=== PATIENT | female | born 1995 | race Caucasian/White ===

== ENCOUNTER 2022-01-14 10:22 | Emergency (ER) | payer OTHER ==
[~2022-01-14] VITALS: Ht 157.5 cm; Wt 72.1 kg
[2022-01-14 10:27] VITALS: BP 135/74
[2022-01-14 10:58] LABS: BASOPHILS % (AUTO) 0.3 % (0.0-2.0); EOSINOPHILS # (AUTO) 0.4 K/uL (0-0.4); EOSINOPHILS % (AUTO) 4.3 % (0.0-4.0); HEMATOCRIT 35.6 % (36-48); HEMOGLOBIN 11.9 g/dL (12.0-16.0); LYMPHOCYTES # (AUTO) 1.7 K/uL (2.5-16.5); LYMPHOCYTES % (AUTO) 20.6 % (20.5-51.1); MEAN CORPUSCULAR HEMOGLOBIN 29 pg (27-31); MEAN CORPUSCULAR HGB CONC 34 g/dL (33-37); MONOCYTES # (AUTO) 0.8 K/uL (0.8-1.0); MONOCYTES % (AUTO) 9.5 % (1.7-9.3); NEUTROPHILS # (AUTO) 5.5 K/uL (1.8-7.7); NEUTROPHILS % (AUTO) 65.3 % (42.2-75.2); PLATELET COUNT (AUTO) 330 K/uL (140-450); RED BLOOD CELL COUNT(AUTO) 4.14 MIL/uL (4.20-5.40); RED CELL DISTRIBUTION WIDTH 13.5 % (11.6-13.7); WHITE BLOOD COUNT (AUTO) 8.5 K/uL (4.8-10.8)
[2022-01-14 11:21] LABS: ALBUMIN 3.5 g/dL (3.4-5.0); ANION GAP 13.3 (8-16); CARBON DIOXIDE 24.3 mmol/L (21-32); CREATININE 0.7 mg/dL (0.6-1.3); POTASSIUM 3.6 mmol/L (3.5-5.1); TOTAL BILIRUBIN 0.3 mg/dL (0.0-1.0)
[2022-01-14 12:00] VITALS: BP 101/47
[2022-01-14] MEDS ORDERED: HYD1C TP (13:04)
== END 2022-01-14 13:17 | disposition home or self-care (01) ==
LOC: MED 10:22
DX: O26.891 Other specified pregnancy related conditions, first trimester (principal); R21 Rash and other nonspecific skin eruption; Z3A.01 Less than 8 weeks gestation of pregnancy
CPT/HCPCS: 36415; 80053; 81002; 81025; 84702; 85025; 99283

== ENCOUNTER 2022-04-15 15:05 | Observation (INO) | payer OTHER ==
[~2022-04-15] VITALS: Ht 157.5 cm; Wt 80.7 kg
[~2022-04-15 15:05] MED LIST: HYD1C TP
[2022-04-15] MEDS ORDERED: PRETAB PO (15:44)
[2022-04-15 15:49] VITALS: BP 118/56
[2022-04-15 16:10] LABS: BASOPHILS % (AUTO) 0.2 % (0.0-2.0); EOSINOPHILS # (AUTO) 0.2 K/uL (0-0.4); EOSINOPHILS % (AUTO) 1.3 % (0.0-4.0); HEMATOCRIT 31.8 % (36-48); HEMOGLOBIN 10.5 g/dL (12.0-16.0); LYMPHOCYTES # (AUTO) 2.1 K/uL (2.5-16.5); LYMPHOCYTES % (AUTO) 18.6 % (20.5-51.1); MEAN CORPUSCULAR HEMOGLOBIN 27 pg (27-31); MEAN CORPUSCULAR HGB CONC 33 g/dL (33-37); MEAN CORPUSCULAR VOLUME 82.4 fL (80-94); MONOCYTES # (AUTO) 0.7 K/uL (0.8-1.0); MONOCYTES % (AUTO) 5.8 % (1.7-9.3); NEUTROPHILS # (AUTO) 8.5 K/uL (1.8-7.7); NEUTROPHILS % (AUTO) 74.1 % (42.2-75.2); PLATELET COUNT (AUTO) 330 K/uL (140-450); RED BLOOD CELL COUNT(AUTO) 3.86 MIL/uL (4.20-5.40); RED CELL DISTRIBUTION WIDTH 13.3 % (11.6-13.7); WHITE BLOOD COUNT (AUTO) 11.5 K/uL (4.8-10.8)
== END 2022-04-15 17:32 | disposition home or self-care (01) ==
LOC: MLD 15:05
PROVIDERS: ADMIT Obstetrics & Gynecology; ATTEND Obstetrics & Gynecology
DX: O26.892 Other specified pregnancy related conditions, second trimester (principal); R10.9 Unspecified abdominal pain; R06.02 Shortness of breath; R42 Dizziness and giddiness; H53.8 Other visual disturbances; Z3A.20 20 weeks gestation of pregnancy
CPT/HCPCS: 36415; 59025; 76805; 81000; 85025; G0378; Q0092

== ENCOUNTER 2022-12-11 08:49 | Emergency (ER) | payer OTHER ==
[~2022-12-11] VITALS: Ht 165.1 cm; Wt 81.6 kg
[~2022-12-11 08:49] MED LIST changes: -HYD1C TP; +PRETAB PO
[2022-12-11 08:53] VITALS: BP 137/61
--- NOTE | 2022-12-11 08:57 | NUR ---
PT AMBULATED TO BED 2 WITH STEADY GAIT
--- NOTE | 2022-12-11 10:05 | NUR ---
Dr. Leavitt bedside
[2022-12-11] MEDS ORDERED: DICYCLOMINE HCL LIQUID 20 MG, ALUMINUM HYD/MAG/SIMETHICONE 30 ML, LIDOCAINE VISCOUS 2% ... PO ONE ×3 (10:15)
[2022-12-11] MEDS ORDERED: DICYCLOMINE HCL LIQUID 10 MG/5 ML UDC ONE (10:21)
[2022-12-11] MEDS ORDERED: ALUMINUM HYD/MAG/SIMETHICONE 30 ML UDC ONE (10:21)
[2022-12-11 10:33] LABS: BASOPHILS % (AUTO) 0.2 % (0.0-2.0); EOSINOPHILS # (AUTO) 0.3 K/uL (0-0.4); EOSINOPHILS % (AUTO) 2.2 % (0.0-4.0); HEMATOCRIT 39.6 % (36-48); LYMPHOCYTES # (AUTO) 1.9 K/uL (2.5-16.5); LYMPHOCYTES % (AUTO) 16.9 % (20.5-51.1); MEAN CORPUSCULAR HEMOGLOBIN 26 pg (27-31); MEAN CORPUSCULAR HGB CONC 33 g/dL (33-37); MEAN CORPUSCULAR VOLUME 79.2 fL (80-94); MONOCYTES # (AUTO) 0.6 K/uL (0.8-1.0); MONOCYTES % (AUTO) 5.5 % (1.7-9.3); NEUTROPHILS # (AUTO) 8.6 K/uL (1.8-7.7); NEUTROPHILS % (AUTO) 75.2 % (42.2-75.2); PLATELET COUNT (AUTO) 353 K/uL (140-450); RED BLOOD CELL COUNT(AUTO) 5.01 MIL/uL (4.20-5.40); RED CELL DISTRIBUTION WIDTH 14.8 % (11.6-13.7); WHITE BLOOD COUNT (AUTO) 11.4 K/uL (4.8-10.8)
[2022-12-11 10:46] LABS: ALBUMIN 4.2 g/dL (3.4-5.0); ANION GAP 12.7 (8-16); CARBON DIOXIDE 26.7 mmol/L (21-32); CREATININE 0.8 mg/dL (0.6-1.3); POTASSIUM 4.4 mmol/L (3.5-5.1); TOTAL BILIRUBIN 0.5 mg/dL (0.0-1.0)
[2022-12-11 11:07] LABS: APPEARANCE,URINE SL CLOUDY (CLEAR); BILIRUBIN,URINE NEGATIVE (NEGATIVE); BLOOD, URINE TRACE-I (NEGATIVE); COLOR,URINE YELLOW (YELLOW); LEUKOCYTE ESTERASE ,URINE NEGATIVE (NEGATIVE); NITRITE, URINE NEGATIVE (NEGATIVE); PH,URINE 5.5 (5.0-9.0); UGLUCOSE NEGATIVE (NEGATIVE)
--- NOTE | 2022-12-11 11:49 | NUR ---
Female [employer] accompanied female patient for Rectal Exam.
[2022-12-11] MEDS ORDERED: ONDANSETRON 4 MG ODT PO ONE (11:50)
[2022-12-11] MEDS ORDERED: KETOROLAC 30 MG/ML VIAL IM ONE (11:50)
[2022-12-11 11:51] LABS: RBC,URINE 0-5 /HPF (0-5); WBC,URINE 0-5 /HPF (0-5)
--- NOTE | 2022-12-11 12:30 | NUR ---
Pt aware she needs to travel via ambulance to [place] for CT. Pt requesting to stay in regular clothes.
--- NOTE | 2022-12-11 14:03 | NUR ---
Report given to EMS. Pt to be be transported to [place] for abd CT and returen when completed.
[2022-12-11] MEDS ORDERED: ONDA-188 PO (14:11)
[2022-12-11] MEDS ORDERED: METR-435 PO (14:11)
[2022-12-11] MEDS ORDERED: ACET-8905 PO (14:11)
--- NOTE | 2022-12-11 15:05 | NUR ---
PT BACK FROM CT SCAN.
--- NOTE | 2022-12-11 15:08 | NUR ---
Pt returned from [place].
[2022-12-11 15:59] VITALS: BP 118/58
== END 2022-12-11 15:59 | disposition home or self-care (01) ==
LOC: MED 08:49
DX: R10.13 Epigastric pain (principal); R19.7 Diarrhea, unspecified; Z72.89 Other problems related to lifestyle
CPT/HCPCS: 36415; 80053; 81001; 81025; 83690; 85025; 96372; 99283; J1885; Q0162

== ENCOUNTER 2023-06-18 12:04 | Emergency (ER) | payer OTHER ==
[~2023-06-18] VITALS: Ht 157.5 cm; Wt 74.4 kg
[~2023-06-18 12:04] MED LIST changes: +ACET-8905 PO; +METR-435 PO; +ONDA-188 PO
[2023-06-18 12:30] VITALS: BP 106/71; PULSE 88; RESP 20; TEMP 97.6; O2SAT 99
[2023-06-18 13:57] LABS: BASOPHILS % (AUTO) 0.4 % (0.0-2.0); EOSINOPHILS # (AUTO) 0.2 K/uL (0-0.4); EOSINOPHILS % (AUTO) 2.2 % (0.0-4.0); HEMATOCRIT 43.5 % (36-48); HEMOGLOBIN 14.4 g/dL (12.0-16.0); LYMPHOCYTES # (AUTO) 1.7 K/uL (2.5-16.5); LYMPHOCYTES % (AUTO) 20.5 % (20.5-51.1); MEAN CORPUSCULAR HEMOGLOBIN 28 pg (27-31); MEAN CORPUSCULAR HGB CONC 33 g/dL (33-37); MEAN CORPUSCULAR VOLUME 85.2 fL (80-94); MONOCYTES # (AUTO) 0.9 K/uL (0.8-1.0); MONOCYTES % (AUTO) 10.7 % (1.7-9.3); NEUTROPHILS # (AUTO) 5.4 K/uL (1.8-7.7); NEUTROPHILS % (AUTO) 66.2 % (42.2-75.2); PLATELET COUNT (AUTO) 369 K/uL (140-450); RED CELL DISTRIBUTION WIDTH 14.3 % (11.6-13.7); WHITE BLOOD COUNT (AUTO) 8.2 K/uL (4.8-10.8)
--- NOTE | 2023-06-18 14:09 | NUR ---
pt encouraged to give urine sample. unable to give at this time. urine cup provided
[2023-06-18] MEDS ORDERED: ACETAMINOPHEN EXTRA STRENGTH 500 MG TAB PO ONE (14:20)
[2023-06-18] MEDS ORDERED: ONDANSETRON 4 MG ODT PO ONE (14:20)
[2023-06-18] MEDS ORDERED: DICYCLOMINE HCL LIQUID 10 MG/5 ML UDC PO ONE (14:20)
[2023-06-18 14:26] LABS: ALBUMIN 4.1 g/dL (3.4-5.0); ANION GAP 11.7 (8-16); CARBON DIOXIDE 26.1 mmol/L (21-32); CREATININE 0.8 mg/dL (0.6-1.3); POTASSIUM 3.8 mmol/L (3.5-5.1); TOTAL BILIRUBIN 0.3 mg/dL (0.0-1.0)
--- NOTE | 2023-06-18 14:32 | NUR ---
PT STATES SHE IS UNABLE TO GIVE URINE AT THIS TIME. CUP OF WATER GIVEN
[2023-06-18] MEDS ORDERED: ONDA-188 PO (17:42)
[2023-06-18] MEDS ORDERED: IMO2 PO (17:42)
[2023-06-18] MEDS ORDERED: BEN10 PO (17:42)
[2023-06-18] MEDS ORDERED: ACET-10509 PO (17:42)
[2023-06-18 17:46] VITALS: O2SAT 99
--- NOTE | 2023-06-18 17:47 | NUR ---
Patient discharged with v/s stable. Written and verbal after care instructions given and explained. Patient alert, oriented and verbalized understanding of instructions. Ambulatory with steady gait. All questions addressed prior to discharge. ID band removed. Patient advised to follow up with PMD. Rx of BENTYL, LOPERAMIDE, TYLENOL given. Patient educated on indication of medication including possible reaction and side effects. Opportunity to ask questions provided and answered.
[2023-06-18 18:35] LABS: APPEARANCE,URINE CLOUDY (CLEAR); BILIRUBIN,URINE NEGATIVE (NEGATIVE); BLOOD, URINE NEGATIVE (NEGATIVE); COLOR,URINE YELLOW (YELLOW); LEUKOCYTE ESTERASE ,URINE NEGATIVE (NEGATIVE); NITRITE, URINE NEGATIVE (NEGATIVE); PH,URINE 5.5 (5.0-9.0); UGLUCOSE NEGATIVE (NEGATIVE)
== END 2023-06-18 17:46 | disposition home or self-care (01) ==
LOC: MED 12:04
DX: A08.4 Viral intestinal infection, unspecified (principal); Z79.899 Other long term (current) drug therapy
CPT/HCPCS: 36415; 80053; 81003; 81025; 83690; 85025; 99284; Q0162

== ENCOUNTER 2024-02-24 06:10 | Emergency (ER) | payer OTHER ==
[~2024-02-24] VITALS: Ht 157.5 cm; Wt 74.8 kg
[~2024-02-24 06:10] MED LIST changes: +ACET-10509 PO; +BEN10 PO; +IMO2 PO
[2024-02-24 06:20] VITALS: BP 96/76; PULSE 83; RESP 20; TEMP 97.9; O2SAT 98
[2024-02-24] MEDS: ONDANSETRON 4 MG ODT PO ONE (06:45)
[2024-02-24 07:18] LABS: BASOPHILS % (AUTO) 0.3 % (0.0-2.0); EOSINOPHILS # (AUTO) 0.2 K/uL (0-0.4); EOSINOPHILS % (AUTO) 2.2 % (0.0-4.0); HEMATOCRIT 39.2 % (36-48); HEMOGLOBIN 13.3 g/dL (12.0-16.0); LYMPHOCYTES % (AUTO) 20.2 % (20.5-51.1); MEAN CORPUSCULAR HEMOGLOBIN 29 pg (27-31); MEAN CORPUSCULAR HGB CONC 34 g/dL (33-37); MEAN CORPUSCULAR VOLUME 84.6 fL (80-94); MONOCYTES # (AUTO) 0.7 K/uL (0.8-1.0); MONOCYTES % (AUTO) 6.6 % (1.7-9.3); NEUTROPHILS % (AUTO) 70.7 % (42.2-75.2); PLATELET COUNT (AUTO) 345 K/uL (140-450); RED BLOOD CELL COUNT(AUTO) 4.63 MIL/uL (4.20-5.40); RED CELL DISTRIBUTION WIDTH 13.6 % (11.6-13.7); WHITE BLOOD COUNT (AUTO) 9.9 K/uL (4.8-10.8)
[2024-02-24 07:36] LABS: CREATININE 0.9 mg/dL (0.6-1.3)
[2024-02-24 07:41] LABS: ALBUMIN 3.7 g/dL (3.4-5.0); BILIRUBIN,DIRECT 0.1 mg/dL (0.0-0.3); TOTAL BILIRUBIN 0.3 mg/dL (0.0-1.0); TOTAL PROTEIN, SERUM 8.1 g/dL (6.4-8.2)
[2024-02-24 08:56] LABS: APPEARANCE,URINE CLEAR (CLEAR); BILIRUBIN,URINE NEGATIVE (NEGATIVE); BLOOD, URINE NEGATIVE (NEGATIVE); COLOR,URINE YELLOW (YELLOW); LEUKOCYTE ESTERASE ,URINE NEGATIVE (NEGATIVE); NITRITE, URINE NEGATIVE (NEGATIVE); PROTEIN,URINE NEGATIVE (NEGATIVE); UGLUCOSE NEGATIVE (NEGATIVE); UROBILINOGEN,URINE 0.2 EU/dL (0.2 - 1)
[2024-02-24] MEDS ORDERED: FAMO-90 PO (09:04)
[2024-02-24] MEDS ORDERED: ONDA-188 SL (09:04)
[2024-02-24 09:11] VITALS: BP 99/72; PULSE 76; RESP 16; TEMP 98.2; O2SAT 98
== END 2024-02-24 09:13 | disposition home or self-care (01) ==
LOC: MED 06:10
DX: R10.13 Epigastric pain (principal); R11.0 Nausea; Z79.899 Other long term (current) drug therapy
CPT/HCPCS: 36415; 80048; 80076; 81003; 81025; 83690; 84703; 85025; 99283; Q0162